=== PATIENT | female | born 1960 | race Caucasian/White ===

== ENCOUNTER → 2021-11-20 15:09 | Outpatient (BNVA) | payer OTHER, SELFPAY | PROVIDERS: Visit Provider Family Medicine | DX: K22.70 Barrett's esophagus without dysplasia (principal); E78.00 Pure hypercholesterolemia, unspecified; E04.1 Nontoxic single thyroid nodule | CPT/HCPCS: 80053; 80061; 84439; 84443; 84481; 85025 ==